=== PATIENT | female | born 1985 | race African-American/Black ===

== ENCOUNTER 2016-12-29 01:36 | Emergency (ER) | payer OTHER ==
[~2016-12-29] VITALS: Ht 175.3 cm; Wt 111.1 kg
[2016-12-29 01:56] VITALS: BP 166/108
[2016-12-29] MEDS ORDERED: NAPR500T PO (03:21)
[2016-12-29] MEDS ORDERED: AMOX500C PO (03:21)
--- NOTE | 2016-12-29 03:21 | PHYS DOC ---
Past Medical History Past Medical History: Diabetes-Type II, Hypertension Past Surgical History: No Surgical History Alcohol Use: None Drug Use: None Adult General Chief Complaint Chief Complaint: EARACHE/EAR PAIN HPI HPI Patient is a 31 year old female who presents with complaint of right ear pain. Patient states her symptoms started suddenly this evening. Patient states that she is having sharp pain in her ear. Patient denies any drainage. Patient does admit to muffling in the right ear. Patient denies any recent illness or fever. Patient rates her pain as 10 out of 10 currently. Patient has not taken any medications to help with her symptoms. Review of Systems Review of Systems Constitutional: Denies fever or chills [] Eyes: Denies change in visual acuity, redness, or eye pain [] HENT: Earache [] Respiratory: Denies cough or shortness of breath [] Cardiovascular: No additional information not addressed in HPI [] GI: Denies abdominal pain, nausea, vomiting, bloody stools or diarrhea [] Musculoskeletal: Denies back pain or joint pain [] Integument: Denies rash or skin lesions [] Neurologic: Denies headache, focal weakness or sensory changes [] Current Medications Current Medications Current Medications Medications (Trade) Dose Ordered Sig/Claritza Start Time Stop Time Status Last Admin Dose Admin Acetaminophen (Tylenol) 650 mg 1X ONCE 12/29/16 03:00 12/29/16 03:01 UNV Amoxicillin (Amoxil) 1,000 mg 1X ONCE 12/29/16 03:00 12/29/16 03:01 UNV Naproxen (Naprosyn) 500 mg 1X STAT 12/29/16 02:59 12/29/16 03:00 UNV Allergies Allergies Allergies Coded Allergies Type Severity Reaction Last Updated Verified No Known Drug Allergies 12/29/16 No Physical Exam Physical Exam Constitutional: Alert, afebrile, appears in mild to moderate discomfort. [] HENT: Normocephalic, atraumatic, bilateral external ears normal, right TM bulging, erythematous, left TM normal, oropharynx moist, no oral exudates, nose normal. [] Eyes: PERRLA, EOMI, conjunctiva normal, no discharge. [] Neck: Normal range of motion, no tenderness, supple, no stridor. [] Cardiovascular:Heart rate regular rhythm, no murmur [] Lungs & Thorax: Bilateral breath sounds clear to auscultation [] Abdomen: Bowel sounds normal, soft, no tenderness, no masses, no pulsatile masses. [] Skin: Warm, dry, no erythema, no rash. [] Back: No tenderness, no CVA tenderness. [] Extremities: No tenderness, no cyanosis, no clubbing, ROM intact, no edema. [] Neurologic: Alert and oriented X 3, normal motor function, normal sensory function, no focal deficits noted. [] Current Patient Data Vital Signs Vital Signs Date Time Temp Pulse Resp B/P (MAP) Pulse Ox O2 Delivery O2 Flow Rate FiO2 12/29/16 01:56 98.9 79 18 100 Room Air 98.9 EKG EKG Not performed [] Radiology/Procedures Radiology/Procedures Not performed [] Course & Med Decision Making Course & Med Decision Making Pertinent Labs and Imaging studies reviewed. (See chart for details) Patient started on amoxicillin, Naprosyn, and Tylenol in the emergency department for treatment of acute otitis media. Patient discharged with 10 day course of amoxicillin and prescription of Naprosyn for treatment of pain. Advised follow-up with primary doctor in 7 days of symptoms are not improving and return to the emergency department for any worsening symptoms. Dragon Disclaimer Dragon Disclaimer This electronic medical record was generated, in whole or in part, using a voice recognition dictation system. Departure Departure Impression: Primary Impression: Acute otitis media Disposition: 01 HOME, SELF-CARE Condition: IMPROVED Referrals: TOM FREITAS MD (PCP) Patient Instructions: Otitis Media, Adult Additional Instructions: Follow-up with your primary doctor in 7 days of symptoms are not improving. Return to the emergency department for any worsening symptoms. Scripts Naproxen (NAPROSYN) 500 Mg Tablet 1 TAB PO BID, #20 TAB 0 Refills Prov: JOSE MIGUEL GEORGE MD 12/29/16 Amoxicillin (AMOXICILLIN) 500 Mg Capsule 1000 MG PO BID, #40 CAP 0 Refills Prov: JOSE MIGUEL GEORGE MD 12/29/16 Problem Qualifiers Primary Impression: Acute otitis media Otitis media type: suppurative Laterality: right Recurrence: not specified as recurrent Spontaneous tympanic membrane rupture: without spontaneous rupture Qualified Codes: H66.001 - Acute suppurative otitis media without spontaneous rupture of ear drum, right ear JOSE MIGUEL GEORGE MD December 29, 2016 03:21
[2016-12-29] MEDS ORDERED: ACETAMINOPHEN 325 MG TABLET. PO ONE (04:00)
[2016-12-29] MEDS ORDERED: NAPROXEN 500 MG TABLET PO ONE (04:00)
[2016-12-29] MEDS ORDERED: AMOXICILLIN 250 MG CAPSULE. PO ONE (04:00)
== END 2016-12-29 03:38 | disposition home or self-care (01) ==
LOC: ER 01:36
DX: H66.91 Otitis media, unspecified, right ear (principal); I10 Essential (primary) hypertension; E11.9 Type 2 diabetes mellitus without complications
CPT/HCPCS: 99284

== ENCOUNTER 2017-05-16 17:28 | Emergency (ER) | payer OTHER ==
[~2017-05-16] VITALS: Ht 175.3 cm; Wt 97.5 kg
[~2017-05-16 17:28] MED LIST: AMOX500C PO; NAPR500T PO
[2017-05-16 17:35] VITALS: BP 144/96
[2017-05-16 18:31] LABS: BACTERIA,URINE MANY /HPF (0-FEW); BILIRUBIN,URINE NEGATIVE (NEG); GLUCOSE,URINE NEGATIVE (NEG); NITRITE,URINE NEGATIVE (NEG); PROTEIN,URINE NEGATIVE (NEG-TRACE); RBC,URINE 0 /HPF (0-2); SQUAMOUS EPITHELIAL CELL,UR MANY /LPF; UROBILINOGEN,URINE 0.2 mg/dL (0.2 mg/dL); WBC,URINE >40 /HPF (0-4)
[2017-05-16] MEDS ORDERED: metroNIDAZOLE 500 MG TABLET PO ONE (18:45)
[2017-05-16] MEDS ORDERED: cefTRIAXone IM 250 MG VIAL IM ONE (18:45)
[2017-05-16] MEDS ORDERED: AZITHROMYCIN 250 MG TABLET. PO ONE (18:45)
[2017-05-16] MEDS ORDERED: METR500T PO (18:57)
[2017-05-16] MEDS ORDERED: SULF1TAB24 PO (18:57)
--- NOTE | 2017-05-16 18:58 | PHYS DOC ---
Past Medical History Past Medical History: Diabetes-Type II, Hypertension Past Surgical History: No Surgical History Alcohol Use: None Drug Use: None Adult General Chief Complaint Chief Complaint: VAGINAL PROBLEM HPI HPI Patient is a 32 year old female with history of hypertension and diabetes type 2 who presents today with vaginal discharge and irritation for 2 or 3 days. Patient is also concerned about STDs and would like to be tested and treated. Patient is in the ED with the significant other who is being treated. Review of Systems Review of Systems Constitutional: Denies fever or chills [] GI: Denies abdominal pain, nausea, vomiting, bloody stools or diarrhea [] : vaginal discharge and irritation Musculoskeletal: Denies back pain or joint pain [] Integument: Denies rash or skin lesions [] Neurologic: Denies headache, focal weakness or sensory changes [] Current Medications Current Medications Current Medications Medications (Trade) Dose Ordered Sig/Claritza Start Time Stop Time Status Last Admin Dose Admin Azithromycin (Zithromax) 1,000 mg 1X ONCE 05/16/17 18:45 05/16/17 18:46 DC Ceftriaxone Sodium (Rocephin Im) 250 mg 1X ONCE 05/16/17 18:45 05/16/17 18:46 DC Metronidazole (Flagyl) 2,000 mg 1X ONCE 05/16/17 18:45 05/16/17 18:46 DC Allergies Allergies Allergies Coded Allergies Type Severity Reaction Last Updated Verified No Known Drug Allergies 12/29/16 No Physical Exam Physical Exam Constitutional: Well developed, well nourished, no acute distress, non-toxic appearance. [] Abdomen: Bowel sounds normal, soft, no tenderness, no masses, no pulsatile masses. [] Pelvic exam External pelvic appears normal, cervix is closed, no CMT, no adnexal tenderness. Small amount of discharge in the vaginal vault. Skin: Warm, dry, no erythema, no rash. [] Back: No tenderness, no CVA tenderness. [] Extremities: No tenderness, no cyanosis, no clubbing, ROM intact, no edema. [] Neurologic: Alert and oriented X 3, normal motor function, normal sensory function, no focal deficits noted. [] Psychologic: Affect normal, judgement normal, mood normal. [] Current Patient Data Vital Signs Vital Signs Date Time Temp Pulse Resp B/P (MAP) Pulse Ox O2 Delivery O2 Flow Rate FiO2 05/16/17 17:35 99.1 86 12 100 Room Air 99.1 Lab Values Laboratory Tests Test 05/16/17 17:52 05/16/17 18:00 POC Urine HCG, Qualitative Hcg negative (Negative) Urine Collection Type Unknown Urine Color Yellow Urine Clarity Clear Urine pH 6.0 Urine Specific [place] 1.020 Urine Protein Negative mg/dL (NEG-TRACE) Urine Glucose (UA) Negative mg/dL (NEG) Urine Ketones (Stick) Negative mg/dL (NEG) Urine Blood Trace (NEG) Urine Nitrite Negative (NEG) Urine Bilirubin Negative (NEG) Urine Urobilinogen Dipstick 0.2 mg/dL (0.2 mg/dL) Urine Leukocyte Esterase Moderate (NEG) Urine RBC 0 /HPF (0-2) Urine WBC >40 /HPF (0-4) Urine Squamous Epithelial Cells Many /LPF Urine Bacteria Many /HPF (0-FEW) Urine Mucus Marked /LPF Microbiology 05/16/17 Wet Prep - Final, Complete EKG EKG [] Radiology/Procedures Radiology/Procedures [] Course & Med Decision Making Course & Med Decision Making Pertinent Labs and Imaging studies reviewed. (See chart for details) Patient is in the ED with vaginal irritation and discharge. She is also concern for STDs. Negative urine hCG. Wet prep positive for BV. Noted for UTI. Treated for STDs prophylaxis in the ED. Discharged with Flagyl and Bactrim. Follow-up with PCP or health department in 1-2 weeks. Provided STD education. Dragon Disclaimer Dragon Disclaimer This electronic medical record was generated, in whole or in part, using a voice recognition dictation system. Departure Departure Impression: Primary Impression: Concern about STD in female without diagnosis Additional Impressions: Bacterial vaginosis Urinary tract infection Disposition: 01 HOME, SELF-CARE Condition: STABLE Referrals: NON,STAFF (PCP) health department for further STD concerns Patient Instructions: Bacterial Vaginosis, Sexually Transmitted Disease, Urinary Tract Infection Additional Instructions: You were seen with concern for STDs. You were treated in the ED. We will call you in 3-7 days if your results are positive. If they're negative we will not call you. Use protection at all times. You must contact all your sex partners, let them know you were treated for STDs and ask them to seek treatment too. Don' t have sex for 7 days. You also have urinary tract infection and bacterial vaginosis. We put you on antibiotics. Ensure you complete them. Scripts Sulfamethoxazole/Trimethoprim (BACTRIM DS TABLET) 1 Each Tablet 1 TAB PO BID, #10 TAB Prov: ERIN EPSTEIN APRN 05/16/17 Metronidazole (FLAGYL) 500 Mg Tablet 1 TAB PO BID, #10 TAB Prov: ERIN EPSTEIN APRN 05/16/17 Problem Qualifiers Additional Impressions: Urinary tract infection Urinary tract infection type: acute cystitis Hematuria presence: without hematuria Qualified Codes: N30.00 - Acute cystitis without hematuria ERIN EPSTEIN APRN May 16, 2017 18:58
== END 2017-05-16 19:20 | disposition home or self-care (01) ==
LOC: ER 17:28
DX: Z20.2 Contact with and (suspected) exposure to infections with a predominantly sexual mode of transmission (principal); N76.0 Acute vaginitis; N30.00 Acute cystitis without hematuria; I10 Essential (primary) hypertension; E11.9 Type 2 diabetes mellitus without complications
CPT/HCPCS: 81001; 81025; 96372; 99284; J0696; Q0111; Q0144; 87491; 87591

== ENCOUNTER 2019-01-25 16:18 | Emergency (ER) | payer OTHER ==
[~2019-01-25] VITALS: Ht 175.3 cm; Wt 95.3 kg
[~2019-01-25 16:18] MED LIST changes: +METR500T PO; +NAPR-683 PO; -NAPR500T PO; +SULF1TAB24 PO
[2019-01-25 16:39] VITALS: BP 151/88
[2019-01-25 16:54] LABS: BILIRUBIN,URINE NEGATIVE (NEG); CLARITY,URINE CLOUDY; COLOR,URINE YELLOW; NITRITE,URINE POSITIVE (NEG); PH,URINE 5.5; PROTEIN,URINE 30 mg/dL (NEG-TRACE); UROBILINOGEN,URINE 0.2 mg/dL (0.2 mg/dL)
[2019-01-25 17:05] LABS: BACTERIA,URINE MOD /HPF (0-FEW); SQUAMOUS EPITHELIAL CELL,UR OCC /LPF; WBC,URINE TNTC /HPF (0-4)
[2019-01-25] MEDS ORDERED: CEPH500C PO (17:29)
[2019-01-25] MEDS ORDERED: PHEN100T82 PO (17:29)
--- NOTE | 2019-01-25 17:30 | PHYS DOC ---
Past Medical History Past Medical History: Diabetes-Type II, Hypertension Past Surgical History: No Surgical History Alcohol Use: None Drug Use: None Adult General Chief Complaint Chief Complaint: PAIN ON URINATION HPI HPI Patient is a 33 year old female with history of diabetes type 2, hypertension, who presents to the ED today complaining of dysuria for 2 days. Denies any fever, nausea vomiting. Denies any chance she is . Review of Systems Review of Systems Constitutional: Denies fever or chills [] GI: Denies abdominal pain, nausea, vomiting, bloody stools or diarrhea [] : Reports dysuria, denies hematuria [] Musculoskeletal: Denies back pain or joint pain [] Integument: Denies rash or skin lesions [] Neurologic: Denies headache, focal weakness or sensory changes [] All other systems were reviewed and found to be within normal limits, except as documented in this note. Allergies Allergies Allergies Coded Allergies Type Severity Reaction Last Updated Verified No Known Drug Allergies 12/29/16 No Physical Exam Physical Exam Constitutional: Well developed, well nourished, no acute distress, non-toxic appearance. [] Abdomen: Bowel sounds normal, soft, no tenderness, no masses, no pulsatile masses. [] Skin: Warm, dry, no erythema, no rash. [] Back: No tenderness, no CVA tenderness. [] Extremities: No tenderness, no cyanosis, no clubbing, ROM intact, no edema. [] Neurologic: Alert and oriented X 3, normal motor function, normal sensory function, no focal deficits noted. [] Psychologic: Affect normal, judgement normal, mood normal. [] Current Patient Data Vital Signs Vital Signs Date Time Temp Pulse Resp B/P (MAP) Pulse Ox O2 Delivery O2 Flow Rate FiO2 01/25/19 16:39 98.5 95 20 151/88 (109) 99 Room Air 98.5 Lab Values Laboratory Tests Test 01/25/19 16:45 01/25/19 16:46 Urine Color Yellow Urine Clarity Cloudy Urine pH 5.5 Urine Specific [place] >=1.030 Urine Protein 30 mg/dL (NEG-TRACE) Urine Glucose (UA) >=1000 mg/dL (NEG) Urine Ketones (Stick) Negative mg/dL (NEG) Urine Blood Moderate (NEG) Urine Nitrite Positive (NEG) Urine Bilirubin Negative (NEG) Urine Urobilinogen Dipstick 0.2 mg/dL (0.2 mg/dL) Urine Leukocyte Esterase Large (NEG) Urine RBC 3-5 /HPF (0-2) Urine WBC Tntc /HPF (0-4) Urine Squamous Epithelial Cells Occ /LPF Urine Bacteria Mod /HPF (0-FEW) POC Urine HCG, Qualitative Hcg negative (Negative) EKG EKG [] Radiology/Procedures Radiology/Procedures [] Course & Med Decision Making Course & Med Decision Making Pertinent Labs and Imaging studies reviewed. (See chart for details) This is a 33-year-old female patient presenting to the ED today with dysuria, positive for UTI. Discharged with cephalexin and Pyridium. Tylenol/Motrin for pain or fever. Instructed push fluids. Follow-up with primary care doctor in 1-2 weeks. Radha Disclaimer Dragon Disclaimer This electronic medical record was generated, in whole or in part, using a voice recognition dictation system. Departure Departure Impression: Primary Impression: Urinary tract infection Disposition: HOME, SELF-CARE Condition: STABLE Referrals: UNKNOWN PCP NAME (PCP) follow up in 1 week Patient Instructions: Urinary Tract Infection Additional Instructions: You have urinary tract infection, we put you on antibiotics, ensure you complete them. Take ibuprofen/tylenol and Pyridium as needed for pain. Follow-up with your doctor in 1-2 weeks. Scripts Phenazopyridine Hcl (PYRIDIUM) 100 Mg Tablet 100 MG PO TID, #9 TAB Prov: ERIN EPSTEIN APRN 01/25/19 Cephalexin (CEPHALEXIN) 500 Mg Capsule 1 CAP PO BID, #14 CAP Prov: ERIN EPSTEIN APRN 01/25/19 Problem Qualifiers Primary Impression: Urinary tract infection Urinary tract infection type: site unspecified Hematuria presence: without hematuria Qualified Codes: N39.0 - Urinary tract infection, site not specified ERIN EPSTEIN APRN Jan 25, 2019 17:30
== END 2019-01-25 17:35 | disposition home or self-care (01) ==
LOC: ER 16:18
DX: N39.0 Urinary tract infection, site not specified (principal); E11.9 Type 2 diabetes mellitus without complications; I10 Essential (primary) hypertension
CPT/HCPCS: 81001; 81025; 99283